=== PATIENT | male | born 1955 | race Caucasian/White ===

== ENCOUNTER → 2017-11-29 | Outpatient (CLI) | payer OTHER ==
[~2017-11-29] MED LIST: ADVAIR HFA 230M12 GM INH; ALDACTONE25 MG PO; ASPIR 8181 M1 PO; LEXAPRO 10 MG T10 M2 PO; LIPITOR80 MG PO; LOPRESSOR50 PO; MOBIC15 MG PO; NITROGLYCERIN0.4 MG SUBLING; ONDANSETRON HCL4 M2 PO; PREVACID15 MG PO; SINGULAIR 10 MG10 M1 PO; VENTOLIN HFA 1818 GM INH; ZETIA10 MG PO
== END ==
LOC: M.RAD 14:28
DX: S32.030G Wedge compression fracture of third lumbar vertebra, subsequent encounter for fracture with delayed healing (principal); I11.0 Hypertensive heart disease with heart failure; I50.22 Chronic systolic (congestive) heart failure; M19.90 Unspecified osteoarthritis, unspecified site; J44.9 Chronic obstructive pulmonary disease, unspecified; X58.XXXD Exposure to other specified factors, subsequent encounter

== ENCOUNTER → 2017-12-07 | Outpatient (CLI) | payer OTHER | LOC: M.MRI 11:20 | DX: S32.030D Wedge compression fracture of third lumbar vertebra, subsequent encounter for fracture with routine healing (principal); M47.816 Spondylosis without myelopathy or radiculopathy, lumbar region; M51.26 Other intervertebral disc displacement, lumbar region; M48.062 Spinal stenosis, lumbar region with neurogenic claudication; I10 Essential (primary) hypertension; I25.10 Atherosclerotic heart disease of native coronary artery without angina pectoris; E78.2 Mixed hyperlipidemia; J44.9 Chronic obstructive pulmonary disease, unspecified; K21.9 Gastro-esophageal reflux disease without esophagitis; M19.90 Unspecified osteoarthritis, unspecified site; X58.XXXD Exposure to other specified factors, subsequent encounter ==

== ENCOUNTER 2018-12-06 13:19 | Emergency (ER) | payer OTHER ==
[~2018-12-06] VITALS: Ht 182.9 cm; Wt 97.5 kg
[2018-12-06] MEDS ORDERED: NEURONTIN 300300 M1 PO (13:55)
[2018-12-06] MEDS ORDERED: ZOLOFT100 MG PO (13:56)
[2018-12-06] MEDS ORDERED: ANTIVERT25 MG PO (13:57)
[2018-12-06] MEDS ORDERED: TRAMADOL 50 MG50 MG PO (13:58)
[2018-12-06] MEDS ORDERED: ZANAFLEX4 MG PO ×2 (13:58→16:14)
[2018-12-06] MEDS ORDERED: VIAGRA100 MG PO (13:58)
[2018-12-06] MEDS ORDERED: MEDROLDOSEPACK PO (16:14)
[2018-12-06] MEDS ORDERED: PERCOCET PO (16:14)
[2018-12-06] MEDS ORDERED: NABUMETONE 750750 M1 PO (16:14)
[2018-12-06 16:22] VITALS: BP 155/95
== END 2018-12-06 16:23 | disposition home or self-care (01) ==
LOC: M.ERS 13:19
DX: S22.070A Wedge compression fracture of T9-T10 vertebra, initial encounter for closed fracture (principal); M54.31 Sciatica, right side; M19.90 Unspecified osteoarthritis, unspecified site; I10 Essential (primary) hypertension; E78.5 Hyperlipidemia, unspecified; Z88.5 Allergy status to narcotic agent; Z88.8 Allergy status to other drugs, medicaments and biological substances; W18.39XA Other fall on same level, initial encounter; Y93.89 Activity, other specified; Y92.89 Other specified places as the place of occurrence of the external cause; Y99.8 Other external cause status

== ENCOUNTER → 2018-12-13 | Outpatient (CLI) | payer OTHER ==
[~2018-12-13] MED LIST changes: +ANTIVERT25 MG PO; +FLEXERIL PO; +MEDROLDOSEPACK PO; +NABUMETONE 750750 M1 PO; +NEURONTIN 300300 M1 PO; +PERCOCET 5-3251 EACH PO; +PERCOCET PO; +TRAMADOL 50 MG50 MG PO; +VIAGRA100 MG PO; +ZANAFLEX4 MG PO; +ZOLOFT100 MG PO
== END ==
LOC: M.CT 11:22 → M.MRI 14:13 → M.CT 15:30
DX: S32.401A Unspecified fracture of right acetabulum, initial encounter for closed fracture (principal); M87.851 Other osteonecrosis, right femur; M47.817 Spondylosis without myelopathy or radiculopathy, lumbosacral region; I25.10 Atherosclerotic heart disease of native coronary artery without angina pectoris; J43.9 Emphysema, unspecified; I10 Essential (primary) hypertension; Z88.8 Allergy status to other drugs, medicaments and biological substances; Z79.899 Other long term (current) drug therapy; W19.XXXA Unspecified fall, initial encounter; Y93.89 Activity, other specified; Y92.89 Other specified places as the place of occurrence of the external cause; Y99.8 Other external cause status

== ENCOUNTER 2018-12-14 10:18 | Emergency (ER) | payer OTHER ==
[~2018-12-14] VITALS: Ht 182.9 cm; Wt 97.5 kg
[~2018-12-14 10:18] MED LIST changes: -FLEXERIL PO; -PERCOCET 5-3251 EACH PO
[2018-12-14] MEDS ORDERED: FLEXERIL PO (11:10)
[2018-12-14] MEDS ORDERED: PERCOCET 5-3251 EACH PO (11:10)
[2018-12-14 11:35] VITALS: BP 128/86
== END 2018-12-14 11:36 | disposition home or self-care (01) ==
LOC: M.ERS 10:18
DX: S72.091A Other fracture of head and neck of right femur, initial encounter for closed fracture (principal); M19.90 Unspecified osteoarthritis, unspecified site; I10 Essential (primary) hypertension; E78.5 Hyperlipidemia, unspecified; Z88.5 Allergy status to narcotic agent; Z88.8 Allergy status to other drugs, medicaments and biological substances; W18.39XA Other fall on same level, initial encounter; Y93.89 Activity, other specified; Y92.89 Other specified places as the place of occurrence of the external cause; Y99.8 Other external cause status

== ENCOUNTER → 2019-02-03 | Outpatient (CLI) | payer OTHER ==
[~2019-02-03] MED LIST changes: +FLEXERIL PO; +PERCOCET 5-3251 EACH PO; +TYLENOL325 MG PO
== END ==
LOC: M.PC 02:29
DX: M47.814 Spondylosis without myelopathy or radiculopathy, thoracic region (principal); M47.816 Spondylosis without myelopathy or radiculopathy, lumbar region; M51.34 Other intervertebral disc degeneration, thoracic region; M48.56XA Collapsed vertebra, not elsewhere classified, lumbar region, initial encounter for fracture; M48.54XA Collapsed vertebra, not elsewhere classified, thoracic region, initial encounter for fracture

== ENCOUNTER → 2019-02-05 | Outpatient (CLI) | payer OTHER | END | disposition home or self-care (01) | LOC: M.PC 03:23 | DX: M54.9 Dorsalgia, unspecified (principal); M47.814 Spondylosis without myelopathy or radiculopathy, thoracic region; M51.34 Other intervertebral disc degeneration, thoracic region; G89.29 Other chronic pain; I10 Essential (primary) hypertension; M19.90 Unspecified osteoarthritis, unspecified site; F17.210 Nicotine dependence, cigarettes, uncomplicated; E78.5 Hyperlipidemia, unspecified; Z98.890 Other specified postprocedural states; Z79.899 Other long term (current) drug therapy; Z88.8 Allergy status to other drugs, medicaments and biological substances ==

== ENCOUNTER → 2019-02-12 | Outpatient (CLI) | payer OTHER | LOC: M.PC 05:16 | DX: M51.34 Other intervertebral disc degeneration, thoracic region (principal); M47.814 Spondylosis without myelopathy or radiculopathy, thoracic region; M43.8X6 Other specified deforming dorsopathies, lumbar region; I10 Essential (primary) hypertension; F17.210 Nicotine dependence, cigarettes, uncomplicated; Z79.899 Other long term (current) drug therapy; Z72.89 Other problems related to lifestyle; Z88.1 Allergy status to other antibiotic agents; Z88.5 Allergy status to narcotic agent ==

== ENCOUNTER 2019-05-20 15:33 | Inpatient (IN) | payer OTHER ==
[~2019-05-20] VITALS: Ht 182.9 cm; Wt 113.9 kg
[~2019-05-20 15:33] MED LIST changes: +ADVAIR 250-501 EACH INH; -ADVAIR HFA 230M12 GM INH; -ALDACTONE25 MG PO; +SPIRONOLACTONE25 M1 PO
[2019-05-20 15:36] VITALS: BP 139/97
[2019-05-20 17:07] LABS: ABSOLUTE BASOPHILS 0.1 thou/uL (0.0-0.2); ABSOLUTE EOSINOPHILS 0.2 thou/uL (0.0-0.7); ABSOLUTE LYMPHOCYTES 1.7 thou/uL (0.8-5.3); ABSOLUTE MONOCYTES 0.5 thou/uL (0.0-1.2); ABSOLUTE NEUTROPHILS 2.6 thou/uL (1.6-8.1); BASOPHILS 1.2 %; EOSINOPHILS 3.8 %; HEMATOCRIT 42.9 % (42.0-52.0); HEMOGLOBIN 14.8 gm/dL (14.0-18.0); LYMPHOCYTES 33.3 %; MCH 33.5 pg (26.0-34.0); MCHC 34.5 g/dL (28.0-37.0); MCV 97.1 fL (80.0-100.0); MPV 7.1 fl. (7.2-11.1); NUCLEATED RBCS 0 /100WBC; PLATELET COUNT* 287 thou/uL (150-400); POLYS 51.7 %; RBC 4.42 mil/uL (4.50-6.00); RDW-CV 14.4 % (10.5-14.5)
[2019-05-20 17:16] LABS: CALCIUM 8.8 mg/dL (8.5-10.1); CREATININE 1.2 mg/dL (0.6-1.3); POTASSIUM 3.7 mmol/L (3.5-5.1)
[2019-05-20 17:19] LABS: APTT 29.9 Seconds (25.0-31.3); PROTIME 10.2 Seconds (9.20-11.50)
[2019-05-20 17:20] LABS: ALBUMIN 3.1 g/dL (3.4-5.0); TOTAL BILIRUBIN 0.3 mg/dL (<0.1-1.0); TOTAL PROTEIN 7.6 g/dL (6.4-8.2)
[2019-05-20 21:30] VITALS: BP 136/89
[2019-05-20 21:42] VITALS: BP 142/93
--- NOTE | 2019-05-21 04:34 | NUR ---
PATIENT RECEIVED MORPHINE Q3 FOR HIP PAIN. CARRERO HAS GOOD OUTPUT. HE DID NOT WANT TO BE MOVED AFTER WE TRANSFERRED HIM TO HIS BED. NPO SINCE MIDNIGHT AND CONSENT FOR SURGERY SIGNED AND IN CHART. CONSULT WITH SURGERY FOR SUNDAY/ WILL CONTINUE TO FOLLOW PLAN OF CARE.
[2019-05-21 04:39] LABS: HEMATOCRIT 43.2 % (42.0-52.0); MCH 34.1 pg (26.0-34.0); MCHC 34.8 g/dL (28.0-37.0); MPV 7.4 fl. (7.2-11.1); RBC 4.41 mil/uL (4.50-6.00); RDW-CV 14.6 % (10.5-14.5); WBC 7.6 thou/uL (4.0-11.0)
[2019-05-21 05:01] LABS: CALCIUM 8.3 mg/dL (8.5-10.1); CREATININE 1.3 mg/dL (0.6-1.3); MAGNESIUM 1.7 mg/dL (1.8-2.4); POTASSIUM 4.5 mmol/L (3.5-5.1)
[2019-05-21 08:20] VITALS: BP 94/69
--- NOTE | 2019-05-21 08:24 | NUR ---
PT 71% ON ROOM AIR. O2 PLACED ON 3L NC AND SATTING AT 85%. TITRATED TO 4L NC AND SATTING AT 90%. PT PLACED ON 5L NC AND SATTING AT 94%. RT IN PT'S ROOM AND GIVING BREATHING TREATMENT. PT ALERT TO PERSON AND PLACE. WHEN ASKED YEAR PT STATES "I DON'T KNOW"
--- NOTE | 2019-05-21 10:23 | NUR ---
cm completed initial assessment to discuss d/c planning. pt asleep. pt at bedside, spouse stated pt is semi-active, hasnt been driving as of late. pt has shower bench, w/c and walker. pt is idependent w/adls. pt is current w/[facility], has been w[facility] 2 weeks. pt has hx w/SMV and pt's would like to explore SNF option; oppose to outpatient therapy. Vane notified and will send referral. cm to remain avail.
[2019-05-21 15:26] LABS: BE -4.7 mmol/L (-2 to +3); PO2 93.7 mmHg (75.0-100.0)
[2019-05-21 15:29] LABS: PCO2 51.4 mmHg (35.0-45.0); pH 7.265 (7.340-7.450)
--- NOTE | 2019-05-21 15:37 | NUR ---
Picked patient up for OR. Speech was garbled, said he was in the hallway. knew his name. Did not know date/time/why he is in hospital. Floor nurse said his oxygen demand had gone up and was on 5L/NC when we picked him up. Dr. Meyer ordered a STAT ABG which just came back. Dr. Meyer ordered a STAT MRI. Neurologist here and ordered an MRI. MRI check list completed and patient moved to MRI cart and went to MRI.
[2019-05-21 23:57] LABS: BE -4.1 mmol/L (-2 to +3); PO2 90.9 mmHg (75.0-100.0)
[2019-05-22] VITALS: BP 144/50
[2019-05-22] LABS: PCO2 71.5 mmHg (35.0-45.0); pH 7.177 (7.340-7.450)
[2019-05-22 01:27] LABS: BE -2.3 mmol/L (-2 to +3); PCO2 40.9 mmHg (35.0-45.0); PO2 76.1 mmHg (75.0-100.0); pH 7.366 (7.340-7.450)
[2019-05-22 04:00] VITALS: BP 100/72
[2019-05-22 04:27] LABS: HEMOGLOBIN 12.3 gm/dL (14.0-18.0)
[2019-05-22 08:00] VITALS: BP 140/50
--- NOTE | 2019-05-22 11:06 | EKG ---
[place] [address] ELECTROCARDIOGRAM REPORT Name: EULALIO SYED Room: [address] ADM IN .R.#: [id number] Admission: 05/20/19 Attend Phys: Janny Shaefr, Discharge: Date of : 53 Date of Service: 05/20/19 1701 Report #: [id number] THIS REPORT FOR: //name// [facility] ED Test Date: 2019-05-20 Test Time: 17:01:21 Pat Name: EULALIO SYED Department: Room: [facility] Gender: M Production Recovery Operator: TRACIE : 1955 Requested By: Rocio Berrios Order Number: [id number] MD: Maximo Brunson Measurements Intervals [place] Rate: 93 P: 58 CA: 184 QRS: 17 QRSD: 77 T: 23 QT: 372 QTc: 463 Interpretive Statements Sinus rhythm Abnormal R-wave progression, early transition Compared to ECG 01/02/2017 09:24:25 Sinus tachycardia no longer present Atrial premature complex(es) no longer present Electronically Signed On 05-22-2019 11:05:17 PATTERN VAULT CLERK by Maximo Brunson [email or web address] <ELECTRONICALLY SIGNED> By: Maximo Brunson MD, FACC 05/22/19 1105 170 170 Maximo Brunson MD, FACC /EPI
[2019-05-22 12:23] VITALS: BP 112/74
--- NOTE | 2019-05-22 14:29 | NUR ---
WOUND NURSE: PATIENT HAS PREVENA NPWT OVER POSTOPERATIVE INCISION ON THE RIGHT HIP AND THE DISPOSABLE CANNISTER IS FULL. SPOKE WITH YONAS IN O.R. AND ASKED IF REPLACEMENT CANNISTER IS AVAILABLE AND HE SAID NOT WITHOUT OPENING AN NEW PREVENA NO INDIVIDUAL CANNISTERS AVAILABLE SPOKE WITH RAZIA AT PENDING SALE TO [facility] PERTAINING TO THIS AND SHE REPORTS VAC ULTA HAS PREVENA SETTING AT [employer] NEG PRESSUE AND OK TO USE IN ACUTE CARE SETTING. PATIENT WAS SUBSEQUENTLY CONVERTED OVER TO VAC ULTA WITH PREVENA SETTING. THIS WAS TOLERATED WELL BY THE PATIENT. SERIAL/BARCODE# [id number] FOR NPWT USED.
[2019-05-22 16:11] VITALS: BP 106/70
--- NOTE | 2019-05-22 19:37 | NUR ---
RECEIVED REPORT FROM RODGER GREEN. ASSUMED CARE OF PT AROUND 0730. PT A&O X4. CASING SEWER IN PLACE TRACING SR WITH OCCASIONAL FIRST DEGREE. AM ASSESSMENT AND VITALS COMPLETED CHARTED. AT BEDSIDE MOST OF SHIFT. PT TOLERATING DIET. PT REPORTING RIGHT HIP PAIN, PO AND IV PAIN MEDICATION GIVEN WITH LIMITED RELIEF; PT STATES "I'M OKAY LONG I DON'T MOVE". PT UP TO CHAIR WITH P.T. THIS SHIFT. COLIN PLUS 125 WOUND VAC FULL AROUND 1330. HOSPITAL OUT OF REPLACEMENT CANNISTERS/COMPLETE 35CM KITS, SO PATIENT PLACED ON HOSPITAL WOUND VAC UNDER COLIN SETTING. SUCTION EFFECTIVE AND WORKING. DRAIN WITH 100CC SANGUNIOUS DRAINAGE AT THIS TIME. INCISIONAL VAC SPONGE DRESSING SATURATED - DR VALENCIA VAUGHN AWARE AND DECISION MADE TO NOT CHANGE DRESSING AT THIS TIME. NUMBER TO REACH COLIN WOUND VAC REP IS [phone]. REPLACEMENT CANNISTER TO ARRIVE SUNDAY SHOULD PT NEED TO GO HOME WITH COLIN WOUND VAC. PT REFUSING TO WEAR/USE ABDUCTOR WEDGE BUT STATES HE WILL NOT CROSS HIS LEGS. PT CURRENTLY RESTING IN BED. CALL LIGHT IS WITHIN REACH. HOURLY ROUNDING PERFORMED. FALL PRECAUTIONS IN PLACE.
[2019-05-22 20:00] VITALS: BP 114/69
[2019-05-23] VITALS: BP 126/75
[2019-05-23 04:00] VITALS: BP 111/61
[2019-05-23 05:01] LABS: HEMATOCRIT 31.7 % (42.0-52.0); HEMOGLOBIN 11.1 gm/dL (14.0-18.0)
[2019-05-23 05:20] LABS: ALBUMIN 2.4 g/dL (3.4-5.0); CALCIUM 8.1 mg/dL (8.5-10.1); CREATININE 1.4 mg/dL (0.6-1.3); MAGNESIUM 1.8 mg/dL (1.8-2.4); TOTAL BILIRUBIN 0.3 mg/dL (<0.1-1.0); TOTAL PROTEIN 6.6 g/dL (6.4-8.2)
[2019-05-23 06:09] LABS: BE -2.1 mmol/L (-2 to +3); PCO2 35.8 mmHg (35.0-45.0); PO2 65.2 mmHg (75.0-100.0)
[2019-05-23 08:00] VITALS: BP 109/71
--- NOTE | 2019-05-23 09:26 | NUR ---
I have reviewed the documentation by KINGS GARDNER from 05/22/19 to 05/22/19 and I concur with it. MARCIN CARMICHAEL
--- NOTE | 2019-05-23 10:18 | NUR ---
SPOKE TO PT AND ABOUT DC PLAN. WOULD LIKE A REHAB CONSULT FOR PT AND [facility] SECOND CHOICE. WILL DISCUSS WITH DR SHAHID
[2019-05-23 11:40] LABS: CALCIUM 8.2 mg/dL (8.5-10.1); CREATININE 1.2 mg/dL (0.6-1.3); MAGNESIUM 1.9 mg/dL (1.8-2.4); POTASSIUM 4.3 mmol/L (3.5-5.1)
[2019-05-23 11:43] VITALS: BP 104/72
--- NOTE | 2019-05-23 14:28 | NUR ---
AWAITING REHAB CONSULT. WILL FAX REFERRAL TO [facility] IF PT LEAVES THIS WEEKEND AND REHAB HAS NOT SEEN PT YET
--- NOTE | 2019-05-23 14:54 | NUR ---
I have reviewed the documentation by KINGS GARDNER from 05/23/19 to 05/23/19 and I concur with it. MARCIN CARMICHAEL
[2019-05-23 16:01] VITALS: BP 127/73
[2019-05-23 20:00] VITALS: BP 104/69
--- NOTE | 2019-05-23 20:15 | NUR ---
RECEIVED REPORT FROM RODGER GREEN. ASSUMED CARE OF PT AROUND 0730. PT ABLE TO ANSWER ORIENTATION QUESTIONS CORRECTLY THIS AM, BUT WAS STILL CONFUSED AND FORGETFUL, ESPECIALLY THIS AFTERNOON. PAIN MEDICATION GIVEN SPARINGLY FOR RIGHT HIP PAIN DUE TO CONFUSION. PT ABLE TO TOLERATE DIET THIS AM AND THIS EVENING, BUT SLEPT THROUGH LUNCH. VISITED THIS AFTERNOON. PT WORKED WITH P.T. AND O.T. THIS SHIFT. IV INTACT. MEDS PER EMAR. MAGAN IN PLACE TO D/D. NO BM THIS SHIFT. PT REFUSING Q2HRS TURNS AT TIMES, PREFERING TO REMAIN ON HIS BACK DUE TO RIGHT HIP DISCOMFORT. HIGH FALL RISK PRECAUTIONS IN PLACE. CALL LIGHT WITHIN REACH. HOURLY ROUNDING PERFORMED.
[2019-05-24] VITALS (7 sets, daily range): BP systolic 88–120; BP diastolic 59–77
--- NOTE | 2019-05-24 07:52 | NUR ---
0200 Pt reporting severe 10/10 pain to R hip. 4 mg morphine IVP given. 0230 Pt reporting increased SOA and chest pain. V/S unremarkable. 12-lead EKG obtained and charted. Pt becoming increasingly agitated and combative; likely due to medication induced delirium. Dr. Burrell notified of pt condition. [address] Burrell 0.5 mg ativan IVP administered and stat CXR ordered. 0330 CXR results negative. Pt resting comfortably with significant relief of agitation.
--- NOTE | 2019-05-24 15:59 | NUR ---
PT NOT PROGRESSING TOWARDS GOALS THIS SHIFT. PT VERY CONFUSED THIS SHIFT. APPEARS TO HAVE OCCASIONAL HALLUCINATIONS. PT GIVEN IV ATIVAN FOR AGITATION ON PREVIOUS SHIFT. CONFUSION MOST LIKELY RELATED TO MEDICATION. NO NARCOTICS GIVEN FOR PAIN MANAGEMENT THIS SHIFT. PT STARTED ON TRAMADOL FOR PAIN. NO OTHER CONCERNS AT THIS TIME. CLWR. WCTM.
[2019-05-25] VITALS: BP 118/72
[2019-05-25 03:57] VITALS: BP 111/72
[2019-05-25 04:46] LABS: HEMATOCRIT 30.3 % (42.0-52.0); HEMOGLOBIN 10.7 gm/dL (14.0-18.0); MCH 34.7 pg (26.0-34.0); MCHC 35.4 g/dL (28.0-37.0); MCV 98.1 fL (80.0-100.0); MPV 8.1 fl. (7.2-11.1); RBC 3.09 mil/uL (4.50-6.00); RDW-CV 14.2 % (10.5-14.5); WBC 10.4 thou/uL (4.0-11.0)
[2019-05-25 04:58] LABS: CALCIUM 8.9 mg/dL (8.5-10.1); CREATININE 1.1 mg/dL (0.6-1.3); POTASSIUM 3.9 mmol/L (3.5-5.1)
--- NOTE | 2019-05-25 05:44 | NUR ---
Pt remains confused & impulsive, but redirectable. Pt has had sitter with him overnight due to impulsivity and frequent attempts to remove wnd vac drsg, pull at tanner, or pick at IV. Pt experiencing hallucinations. Dose of diazepam given at bedtime. Pt later received dose of tramadol and cyclobenzaprine. Pt appeared restful and calm, even sleeping intermittently between MN and 0330; but has been more restless since 0430. Has requested to have mother called because he states she is supposed to be picking him up. Pt denies that he is at hospital, though he states that he has had hip replacement surgery, and has fallen twice since then. Pt has had at least 3 episodes this morning where he states he can't catch his breath; describing that "there is a catch, and then it lets up." Pt has had hiccups intermittently since 2 or 3 this am. Was on room air most of night, but placed on 2L per NC for comfort. Pt in Afib per monitor, HR 100s-110s. VSS. Will continue to monitor.
[2019-05-25 09:00] VITALS: BP 107/61
--- NOTE | 2019-05-25 10:00 | NUR ---
ASSUMED CARE AFTER REPORT APPROX 0730. SITTER AT BEDSIDE, PATIENT RESTLESS. ORIENTED TO SELF AND SITUATION. INAPPROPRIATE BEHAVIOR INCLUDING YELLING, THROWING ITEMS, PULLING STAT LOCK OFF, USING FOUL LANGUAGE. THERAPEUTIC COMMUNICATION TECHNIQUES: PRESENCE, REDIRECTING, SETTING BOUNDARIES. ASSESSMENT COMPLETE, DOCUMENTED. VS OBTAINED, DOCUMENTED. GOAL: COOPERATE WITH PLAN OF CARE, PAIN MANAGEMENT. HOURLY ROUNDING FOR SAFETY/PT NEEDS.
[2019-05-25 12:00] VITALS: BP 108/76
[2019-05-25 15:58] VITALS: BP 115/75
[2019-05-25 19:45] VITALS: BP 106/71
[2019-05-26 00:42] VITALS: BP 139/80
[2019-05-26 04:01] VITALS: BP 126/79
--- NOTE | 2019-05-26 05:09 | NUR ---
PT SLEPT MOST OF SHIFT. ASSESSMENT DOCUMENTED. MEDS GIVEN PER E-MAY. IV PATENT. PAIN MEDS GIVEN PER E-MAY. PT REFUSED MEDICATIONS PART OF SHIFT. PT HALLUCINATING PART OF SHIFT. WOUND VAC IN PLACE. SITTER REMAINED AT BEDSIDE. WILL CONTINUE WITH PLAN OF CARE.
[2019-05-26 08:00] VITALS: BP 102/65
--- NOTE | 2019-05-26 10:08 | NUR ---
Cristhianter to be pulled today. Acute rehab consult pending, CM requested that therapies see Pt and rehab Dr liu for rehab. If Pt does not qualify for acute rehab, plan will be for skilled at [facility], CM to fax referral to [facility] once rehab decision made. Following.
[2019-05-26 13:05] VITALS: BP 111/62
--- NOTE | 2019-05-26 15:22 | EKG ---
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: MICK : 1955 Requested By: Janny Shafer Order Number: [id number] MD: Abdiel Henley Measurements Intervals [place] Rate: 129 P: AK: QRS: 5 QRSD: 70 T: 44 QT: 299 QTc: 438 Interpretive Statements Atrial fibrillation Abnormal R-wave progression, early transition Minimal ST depression, lateral leads Compared to ECG 05/20/2019 17:01:21 ST (T wave) deviation now present Sinus rhythm no longer present Electronically Signed On 05-26-2019 15:21:11 CAN SLIDER by Abdiel Henley [email or web address] <ELECTRONICALLY SIGNED> By: Abdiel Henley MD, [facility] 05/26/19 1521 0347 0347 Abdiel Henley MD, [facility] /EPI
[2019-05-26 16:00] VITALS: BP 133/75
--- NOTE | 2019-05-26 20:03 | NUR ---
PT ORIENTED TO SELF ONLY ALERT, CONFUSION 1 TO 1 CONSTANT OBSERVATION, WOUND VAC ON REPAIRED HIP FRACTURE, UP WITH ONE AND WALKER- PIVOTS TO CHAIR AND COMMODE, HOURLY ROUNDING PERFORMED, POSSESSIONS AND CALL LIGHT WITHIN REACH
[2019-05-26 20:30] VITALS: BP 97/66
[2019-05-27] VITALS: BP 115/57
[2019-05-27 04:45] VITALS: BP 114/72
[2019-05-27 05:17] LABS: HEMATOCRIT 31.7 % (42.0-52.0); MCH 33.6 pg (26.0-34.0); MCHC 34.6 g/dL (28.0-37.0); MCV 97.1 fL (80.0-100.0); RBC 3.27 mil/uL (4.50-6.00); RDW-CV 14.7 % (10.5-14.5); WBC 7.3 thou/uL (4.0-11.0)
[2019-05-27 05:35] LABS: CALCIUM 8.8 mg/dL (8.5-10.1); CREATININE 1.1 mg/dL (0.6-1.3); MAGNESIUM 1.9 mg/dL (1.8-2.4)
--- NOTE | 2019-05-27 08:03 | NUR ---
PT SLEPT MOST OF SHIFT. ASSESSMENT DOCUMENTED. MEDS GIVEN PER E-MAY. IV PATENT. PAIN MEDS GIVEN PER E-MAY. SITTER REMAINED AT BEDSIDE. WOUND VAC IN PLACE. INCISION SITE RED AND INFLAMMED WHEN ROUNDING THIS AM. WILL CONTINUE WITH PLAN OF CARE.
--- NOTE | 2019-05-27 08:09 | NUR ---
CM was informed that acute rehab initiated insurance auth yesterday, plan dc to acute rehab once auth received. Following.
[2019-05-27 11:54] VITALS: BP 109/69
--- NOTE | 2019-05-27 16:06 | NUR ---
SUREKHA called pt Izaiah to discuss pending inpt rehab and pending insurance auth but no answer so left a detailed message about dc planning. Dr Shafer mentioned discussing with pt dtr as well but no dtr name/number listed in chart or notes or cm worksheet so SUREKHA expressed in the message to discuss with pt dtr as well. Back up plan if insurance does not provide auth for inpt rehab would be to try [facility].
--- NOTE | 2019-05-27 17:43 | NUR ---
PT IS A/O X3,BP SOFT-METOPROLOL HELD.REPRODUCTION PRODUCTION MANAGER IN PLACE.PT PROGRESSING TOWARDS GOALS.PT WORKED WITH PT/OT/ST.PT SAT UP IN CHAIR SEVERAL TIMES THROUGHOUT THE SHIFT.WOUND VAC SECURE AND PATENT.CARRERO SECURE ANDPATENT.POTASSIUM REPLACED.IV ANTIBIOTICS GIVEN.PAIN MANAGED WELL WITH PO MEDICATIONS.HOURLY ROUNDING COMPLETED FOR PT SAFETY.CALL LIGHT AND FALL PRECAUTIONS IN PLACE.WILL CONTINUE TO MONITOR FOR DURATION OF SHIFT.
[2019-05-27 20:00] VITALS: BP 110/72
[2019-05-28 00:43] VITALS: BP 113/71
--- NOTE | 2019-05-28 04:13 | NUR ---
[facility] PATIENT CARE [id number]. PATIENT ALERT AND ORIENTED TIMES FOUR. MINOR COMPLAINTS OF PAIN NOTED. MEDICATIONS GIVEN PER EMAR. WOUND VAC IN PLACE. COLD PACK IN PLACE ON RIGHT HIP AREA. ABLE TO TRANSFER TO BSC WITH MIN ASSISST. USES CALL LIGHT APPROPRIATELY. BOX TOE BUFFER AND HOURLY ROUNDING COMPLETED CHARTED.
[2019-05-28 04:30] VITALS: BP 116/82
[2019-05-28 12:11] VITALS: BP 118/82
--- NOTE | 2019-05-28 12:20 | NUR ---
SPOKE TO IRMA AND INFORMED HER THAT PT WAS DENIED FOR ACUTE REHAB. SHE REQUESTS THAT A REFERRAL BE SENT TO [facility]. REFERRAL PACKET FAXED
[2019-05-28 18:09] VITALS: BP 118/76
--- NOTE | 2019-05-28 20:39 | NUR ---
PT 7 DAYS POST SURGERY. WOUND VAC REMOVED PER ORDER FROM ORTHO. THIS RN AND RIP SAW OPERATOR REMOVED DRESSING AND APPLIED NEW ONE. INCISION WELL APPROXIMATED AND GALDINO INTACT.
[2019-05-28 20:40] VITALS: BP 114/72
--- NOTE | 2019-05-28 22:07 | OP ---
[address] [place] [address] OPERATIVE REPORT Name: EULALIO SYED Room: [address] IN M.R.#: [id number] Admission: 05/20/19 Attend Phys: Janny Shafer MD Discharge: Date of : 53 Report #: [id number] THIS REPORT FOR: //name// cc: Paige Galindo Linda J. DO ~ THIS REPORT FOR: //name// CC: Abdiel Galindo PREOPERATIVE DIAGNOSIS: Right comminuted periprosthetic proximal femur fracture with loose stem. POSTOPERATIVE DIAGNOSIS: Right comminuted periprosthetic proximal femur fracture with loose stem. PROCEDURE: 1. Open reduction and internal fixation, right periprosthetic proximal femur fracture, comminuted. 2. Revision total hip arthroplasty. 3. Open reduction and internal fixation, right greater trochanter. SURGEON: Mervin Candelario DO ASSISTANTS: 1. Yovani Merrill DO 2. César Vieira DO 3. Parker Haas DO 4. Yovani Ramos DO ANESTHESIA: General. ANTIBIOTICS: Ancef IV. FLUIDS: 1500 mL lactated Ringer's. BLOOD LOSS: 550 mL. COMPLICATIONS: None. SPECIMENS: None. DRAINS: None. CONDITION OF PATIENT: Stable to PACU. [address] [place] [address] OPERATIVE REPORT Name: EULALIO SYED Room: [address] IN [facility]#: [id number] Admission: 05/20/19 Attend Phys: Janny Shafer MD Discharge: Date of : 53 Report #: [id number] IMPLANTS: Biomet Faiza femoral stem size 16 x 190 mm, A-body 50 mm with standard offset, ceramic 40-mm head, +3 neck adapter, cables for fracture site x 2, 128-mm trochanteric side plate with 4 cables. INDICATIONS FOR PROCEDURE: The patient was admitted to with a periprosthetic proximal femur fracture with loose stem. Dr. Peterson who originally did his surgery contacted me directly asked me if I would take over care. We both agreed that surgical revision would be the treatment of choice. I went over with the patient and family, plan of surgery with indications and reasoning, and risks and complications. Please see consultation and progress notes for full details of discussions had. Risks and complications were acknowledged, accepted, and consent was obtained. DESCRIPTION OF PROCEDURE: I marked the right lower extremity in the presence of the operative team members. Everyone agreed this was correct. He was taken back to the operative suite where a briefing was performed indicating correct patient, procedure, site, antibiotics and that implants were present and sterile. All team members agreed. General anesthetic was administered, transferred over to the operative table in the left lateral decubitus position. The right lower extremity was sterilely prepped and draped in standard fashion. Timeout was performed indicating correct patient, procedure, site, antibiotics and that implants were present and sterile. All team members agreed. Marked out an incision for an anterolateral approach, made sure we kept appropriate distance for good skin bridge between his previous anterior incision, scalpel through skin, full thickness flaps down to the IT band and fascia. Fascia was incised proximally and distally. Charnley retractor placed deep. An anterolateral approach was utilized, took a cuff off of the greater trochanter, and left the cuff or tissue to repair, also worked down through our vastus and through Burns-Maharaj approach as we would need to gain access to our fracture site. Fracture site had a long spike. We were able to continue our incision distally working through our interval appropriately and full visualization of the fracture site. This did unfortunately have some significant comminution with a free fragment medially, posteriorly, and anteriorly. We were able to overall clean out the fracture site, dislocate the hip, removed the stem, cleaned out the fracture site, get appropriate reduction with cerclage cable. We passed the cable staying on bone and provisionally tightening down, but not overtightening. There was a loose trochanteric fragment as well. This would require separate fixation. We brought in flat plate images and confirmed that overall reduction was appropriate. We began prepping the femur with reamers for a 190 to bypass the fracture site by at least two cortical diameters. We went with a 190 mm 16 reamer. We took x-rays and it showed that would be appropriate position and size. The final 16 x 190 mm stem aspect of the Faiza was through and irrigated with normal saline, implanted this, had good fit and fill along the diaphysis. At that point in time, we then began reaming for an A-body, placed our A-body trial with a standard neck adapter and 40-head and locked our version in appropriate position and reduced the hip. Overall stable, but leg [address] [place] [address] OPERATIVE REPORT Name: EULALIO SYED Room: [address] IN M.R.#: [id number] Admission: 05/20/19 Attend Phys: Janny Shafer MD Discharge: Date of : 53 Report #: [id number] lengths were felt to be slightly short. We brought in the flat plate image and this showed continued overall reduction and appropriate sizing of our implants. We dislocated the hip, removed the trial body and head. Final-A 50-mm body was thrown on to the back table. This was implanted and set screw engaged and our version was appropriate judging off the back wall, the calcar, and our femoral condyles that the set screw fully engaged, we then began trialing our heads again. At this time, we went +3. We reduced the hip. This had excellent stability throughout all range of motion, could not find any instability and the leg lengths were more appropriate. Therefore, that was our final head size, thrown on to the backtable, ceramic. We dislocated the hip, removed the trial head, placed our final ceramic 40-mm head with +3 adapter. With all final components for the hip in place, we then reduced the hip, made sure that our distal cables were tightened and then crimped and cut, separate trochanteric fracture needed to be addressed. We, therefore, threw the trochanteric side plate, placed this into its appropriate position and passed the cables again appropriately staying on bone and tightening these down appropriately making sure that the cable was also one being above the lesser, but on bone and not on the prosthesis and one being below the lesser of our proximals. Once we tightened these down and provisionally held that, we brought in our x-ray. Overall, had excellent position of all implants and excellent fracture reduction. We therefore final tightened, crimped, and cut the excess cable. Final intraoperative films were saved and dismissed, irrigated thoroughly with normal saline, reapproximated our vastus fascia with 0 Vicryl [id number] interrupted. Wounds were sewn back to the trochanter with through bone sutures [id number] interrupted #5 TiCron and oversewn with #1 Vicryl. There was no capsule to repair, but he had had a capsulectomy from an anterior approach. We irrigated again with normal saline, closed our IT band layer with #1 Vicryl [id number] interrupted and oversewn with #1 Stratafix running. Subcutaneous and skin were irrigated and then closed with a deep 0 Vicryl layer, 2-0 Monocryl buried, deeper subcutaneous and then fazal for skin. Debriefing performed where we confirmed procedure, blood loss, and that all counts were correct and final. All team members agreed. Sterile incisional VAC dressing was applied. This was sealed and functioning appropriately. He was transferred off the operative table to his bed in supine position. Leg lengths were excellent. Placed an adductor pillow, extubated, and taken to PACU stable. POSTOPERATIVE COURSE AND EVALUATION: I spoke with his and addressed questions she had stated to her satisfaction. She was very thankful for my time and efforts. He was resting in PACU with vital signs stable, pain controlled, neurovascularly intact. Compartments are soft and compressible. Negative Homans sign. No pain out of proportion with passive stretching and incisional VAC dressing functioning appropriately. PACU films showed stable internal fixation and fracture reduction. Implants in good position and alignment. No dislocation or new fracture obviously seen. He will be limited weightbearing. We will also limit his abduction to protect his greater trochanteric repair. PT/OT, case management to help with discharge planning. Neurology is already on [address] [address] OPERATIVE REPORT Name: EULALIO SYED Room: M.223-P ADM IN M.R.#: [id number] Admission: 05/20/19 Attend Phys: Janny Shafer MD Discharge: Date of : 53 Report #: [id number] his case. We will use pain medications as possible. We will continue to monitor. I encouraged nursing, medical staff, the patient, and family to call anytime with questions or concerns. We will continue to monitor. <ELECTRONICALLY SIGNED> By: Mervin Candelario DO 05/28/192206 36 0003Jajeronimo Candelario DO /nt
[2019-05-29] VITALS (7 sets, daily range): BP systolic 105–131; BP diastolic 73–84
--- NOTE | 2019-05-29 02:33 | NUR ---
INITAL ASSESMENT COMPLETED AT 2039. PT RECIEVING SCHEDULED TRAMADOL FOR PAIN. PT UP TO BSC WITH WALKER AND ASSIST X2. CALL LIGHT IN REACH. PT USING PROPERLY.
--- NOTE | 2019-05-29 09:00 | NUR ---
ASSUMED CARE OF PT AT 0730. PT SITTING UP IN THE RECLINER WAITING FOR BREAKFAST. A&0X4, COMPLAINS OF PAIN TO RLE. SCHEDULED PAIN MEDICATION GIVEN BY NOC SHIFT. LIDOCAINE PATCH PLACED WELL. NON PHARMACOLOGICAL MEASURES USED WITH PARTIAL RELIEF. TRACING SR ON THE DROP MAN. ON RA SAT UPPER 90'S. DENIES ANY SHORTNESS OF BREATH. PT UP WITH 1-2 ASSIST AND WALKER TO BATHROOM. EDEMA NOTED TO RLE. DRESSING IN PLACE TO RLE WITH NO DRAINAGE NOTED. PT GOAL FOR TODAY IS WORK WITH PHYSICAL AND OCCUPATIONAL THERAPY, PAIN MGMT, UP TO CHAIR FOR MEALS AND DISCHARGE PLANNING TO SNF. AM ASSESSMENT CHARTED. MEDICATIONS PER MAY. PT REPOSITIONED EVERY 2 HOURS FOR COMFORT. HOURLY ROUNDING OBSERVED. BED IN LOW POSITION. BED ALARM IN PLACE. FALL PRECAUTIONS IN PLACE. CALL LIGHT WITHIN REACH. WILL CONTINUE PLAN OF CARE.
--- NOTE | 2019-05-29 11:44 | NUR ---
PT ACCEPTED TO [facility] PENDING INSURANCE AUTH. WILL CHECK BACK THIS AFTERNOON
--- NOTE | 2019-05-29 15:40 | NUR ---
INSURANCE AUTH STILL PENDING FOR PT TO GO TO [facility]. PT NOTIFIED
--- NOTE | 2019-05-29 17:15 | NUR ---
NO ACUTE CHANGES THROUGHOUT SHIFT. REFER TO CHARTING. PT PROGRESSING TOWARDS GOALS. PT WORKED WITH PHYSICAL AND OCCUPATIONAL THERAPY TODAY-TOLERATED WELL. UP TO CHAIR FOR ALL MEALS-TOLERATED WELL. PLAN IS FOR DISCHARGE TO [facility] TOMORROW 05/30 PENDING INSURANCE AUTHORIZATION. PT COMPLAINED OF PAIN TO RLE THROUGHOUT SHIFT-TREATED WITH SCHEDULED TRAMADOL AND TYLENOL WITH PARTIAL RELIEF. MED SURG STATUS. ON RA SAT UPPER 90'S. DENIES ANY SHORTNESS OF BREATH. PT UP WITH 1 ASSIST AND WALKER TO BATHROOM. MEDICATIONS PER MAY. PT REPOSITIONED EVERY 2 HOURS FOR COMFORT. HOURLY ROUNDING OBSERVED. BED IN LOW POSITION. BED ALARM IN PLACE. FALL PRECAUTIONS IN PLACE. CALL LIGHT WITHIN REACH. WILL CONTINUE PLAN OF CARE.
--- NOTE | 2019-05-30 05:13 | NUR ---
ASSUMED PATIENT CARE OF PATIENT AT 1900. ASSESSMENT COMPLETED CHARTED. PATIENT IS MED-SURG ON THE MONITOR. SMALL AREA OF DRAINAGE NOTED ON RIGHT HIP DRESSING. DRESSINGS ARE INTACT. HOURLY ROUNDING IN PLACE FOR PATIENT SAFETY. CLWR.
[2019-05-30 07:00] VITALS: BP 121/64
--- NOTE | 2019-05-30 08:45 | NUR ---
INITAL ASSESSMENT COMPLETED CHARTED. VSS, PT IS M/S STATUS. PT HAS MINIMAL PAIN TO L LE. PT DENIES SOA, N/V/D, SOA. REFER TO COMPUTER CHARTING FOR FURTHER DETAILS. HOURLY ROUNDING AND FALL PRECAUTIONS IN PLACE FOR PT SAFETY. CLWR.
[2019-05-30] MEDS ORDERED: LIDOPATCH1 EACH TOP (10:54)
[2019-05-30] MEDS ORDERED: COLACE100 MG PO (10:54)
[2019-05-30] MEDS ORDERED: ELIQUIS5 MG PO (10:54)
[2019-05-30] MEDS ORDERED: TRAMADOL 50 MG50 MG PO (10:54)
[2019-05-30] MEDS ORDERED: PAIN RELIEVER500 MG PO (10:54)
--- NOTE | 2019-05-30 14:59 | NUR ---
CONTINUE TO FOLLOW, STILL AWAITING INSURANCE AUTH FOR SNF AT [facility]. SPOKE WITH RENNY/SALO AND ALSO CALLED PT'S INSURANCE, LEFT MESSAGES WITH BOTH REVIEWER FOR ACUTE AND SNF. NO AUTH YET. PT AND UPDATED.
[2019-05-30 15:23] VITALS: BP 121/64
[2019-05-30 17:04] VITALS: BP 117/73
[2019-05-30 20:00] VITALS: BP 118/73
[2019-05-30 23:49] VITALS: BP 112/74
[2019-05-31] VITALS (7 sets, daily range): BP systolic 104–121; BP diastolic 64–74
--- NOTE | 2019-05-31 05:01 | NUR ---
PT CARE ASSUMED AT 1930. SAT MAINTAINED IN RA. ALERT AND ORIENTED X4. DENIES SOB. CALL LIGHT WITHIN REACH AND BED IN LOW POSITION. HOURLY ROUNDING DONE FOR PT SAFETY.
--- NOTE | 2019-05-31 14:28 | NUR ---
ASKED FOR ASSISTANCE FROM CAUSTIC LOADER IN GETTING IN TOUCH WITH ADMISSIONS AT [facility]. ATTEMPTED TO CALL LUCIO ON HER CELL . NO ANSWER TO CALLS OR TEXTS. CALLED AND SPOKE TO CHARGE NURSE WHO DOES NOT HAVE ANY OTHER CONTACT INFO FOR ADMISSIONS AND IS NOT AWARE OF ADMISSION TODAY. WILL ATTEMPT TO FOLLOWUP.
--- NOTE | 2019-05-31 16:32 | NUR ---
ASSUMED CARE OF PATIENT THIS AM AT 0730. PATIENT IS ALERT AND ORIENTED X 4. HE C/O PAIN AT 3 TODAY ON PAIN SCALE. PLANS TO DISCHARGE TO [facility] WERE PLANNED YESTERDAY AND PATIENT WAS TO TRANSFER WHEN BED BECAME AVAILABLE TODAY. ATTEMPTED TO CONTACT ADMISSION NURSE MOST OF THE DAY WITH NO SUCCESS. NURSING REGIONAL BUSINESS MANAGER WAS NOTIFIED. DISCOVERED THAT TRANSFER WOULD NOT BE DONE TODAY THIS EVENING. PATIENT WAS DISAPPOINTED. HE HAS BEEN UP IN THE RECLINER AND UP TO THE BATHROOM WITH WALKER AND HAS WORKED WITH PT AND OT. PAIN MANAGED WITH SCHEDULED PAIN MEDICATION. WILL CONTINUE TO MONITOR PATIENT COMFORT AND SAFETY. NO FALLS OR INJURY. PATIENT HAS RETURNED TO BED THIS EVENING.
--- NOTE | 2019-06-01 05:50 | NUR ---
PT CARE ASSUMED AT 1930. SAT MAINTAINED IN RA. ALERT AND ORIENTED X4. C/O PAIN, MEDICATION GIVEN PER EMAR. CALL LIGHT WITHIN REACH AND BED IN LOW POSITION. HOURLY ROUNDING DONE FOR PT SAFETY.
[2019-06-01 08:00] VITALS: BP 103/67
--- NOTE | 2019-06-01 13:20 | NUR ---
ASSUMED CARE OF PATIENT THIS AM AT 0730. PATIENT IS ALERT AND ORIENTED X 4. HE C/O CONTINUED RIGHT LEG AND FOOT PAIN TODAY. PATIENT'S RIGHT FOOT IS ODDLY ROTATED TO THE RIGHT. HE STATED THAT THIS WAS NEW SINCE HIS FALL. DR KOCH NOTIFIED AND FOOT X RAY ORDERED. HE WAS C/O DIZZINESS THIS AM AND ORTHOSTATICS AND A FLUID BOLUS ORDERED AND GIVEN. SEE FLOW SHEET FOR BLOOD PRESSURES. PATIENT STATED THAT HE WAS FEELING LESS DIZZY NOW. WILL CONTINUE TO MONITOR COMFORT. PATIENT ASSISTED WITH ADLS THROUGHOUT THE DAY. HE IS UP TO THE BATHROOM WITH THE WALKER AND 1 ASSIST. NO FALLS OR INJURY.
[2019-06-01 14:52] VITALS: BP 88/59
[2019-06-01 14:54] VITALS: BP 95/66; BP 97/59
[2019-06-01 17:00] VITALS: BP 103/71
[2019-06-01 20:20] VITALS: BP 113/76
[2019-06-02 00:46] VITALS: BP 104/67
--- NOTE | 2019-06-02 05:42 | NUR ---
PT CARE ASSUMED 1930. SAT MAINTAINED IN RA. ALERT AND ORIENTED X4. C/O PAIN, MEDICATION GIVEN PER EMAR. CALL LIGHT WITHIN REACH AND BED IN LOW POSITION. HOURLY ROUNDING DONE FOR PT SAFETY.
[2019-06-02 07:05] VITALS: BP 99/63
[2019-06-02] MEDS ORDERED: OXYCODONE HCL 55 MG PO (09:44)
[2019-06-02] MEDS ORDERED: VOLTAREN GEL 1100 G1 TOP (09:44)
--- NOTE | 2019-06-02 09:54 | NUR ---
INITAL ASSESSMENT COMPLETED CHARTED. VSS. PT IS M/S STATUS. PT EXPRESSES THE DESIRE TO TRANSFER TO SNF. DISCHARGE SET UP FOR TODAY. NO NEW COMNCERNS. HOURLY ROUNDING AND FALL PRECAUTIONS IN PLACE FOR PT SAFETY.
--- NOTE | 2019-06-02 10:18 | NUR ---
irving mcclellan/gerardo @ [facility]. she will set up transportation for 1300 today, as they have bed avail. pt , janeth, notified. she stated she will be over to [facility] after she gets off work. nurse notified and agreeable to plan. irving provided nurse number to call report. [phone].
== END 2019-06-02 13:18 | DRG 466 ==
LOC: M.ERS 15:33 → M.2W 16:59 → M.TBA-ER 16:59 → M.ORTHSURG 16:59 → M.2W 05-21 22:53
PROVIDERS: Anesthesiology; Internal Medicine; Orthopaedic Surgery; Personal Emergency Response Attendant; ADMIT Internal Medicine
PROC: 0QS604Z Reposition Right Upper Femur with Internal Fixation Device, Open Approach (ICD-10-PCS; principal; 2019-05-28)
PROC: 0SW90JZ Revision of Synthetic Substitute in Right Hip Joint, Open Approach (ICD-10-PCS; principal; 2019-05-28)
DX: M97.01XA Periprosthetic fracture around internal prosthetic right hip joint, initial encounter (principal); G92 Toxic encephalopathy; J96.01 Acute respiratory failure with hypoxia; S22.32XA Fracture of one rib, left side, initial encounter for closed fracture; J98.11 Atelectasis; Z96.651 Presence of right artificial knee joint; T40.605A Adverse effect of unspecified narcotics, initial encounter; I25.10 Atherosclerotic heart disease of native coronary artery without angina pectoris; I95.2 Hypotension due to drugs; I10 Essential (primary) hypertension; E78.5 Hyperlipidemia, unspecified; Z96.641 Presence of right artificial hip joint; Z88.6 Allergy status to analgesic agent; Z88.8 Allergy status to other drugs, medicaments and biological substances; Z82.49 Family history of ischemic heart disease and other diseases of the circulatory system; Z83.6 Family history of other diseases of the respiratory system; Y92.89 Other specified places as the place of occurrence of the external cause; Z79.82 Long term (current) use of aspirin; Z79.899 Other long term (current) drug therapy; W18.39XA Other fall on same level, initial encounter; Y93.89 Activity, other specified

== ENCOUNTER 2019-06-10 13:43 | Inpatient (IN) | payer OTHER ==
[~2019-06-10] VITALS: Ht 182.9 cm; Wt 99.3 kg
[~2019-06-10 13:43] MED LIST changes: +COLACE100 MG PO; +ELIQUIS5 MG PO; +LIDOPATCH1 EACH TOP; +OXYCODONE HCL 55 MG PO; +PAIN RELIEVER500 MG PO; +VOLTAREN GEL 1100 G1 TOP
[2019-06-10 15:39] LABS: BE -3.5 mmol/L (-2 to +3); PCO2 32.5 mmHg (35.0-45.0); pH 7.413 (7.340-7.450)
[2019-06-10 15:46] LABS: PO2 37.7 mmHg (75.0-100.0)
[2019-06-10 15:54] LABS: ABSOLUTE BASOPHILS 0.1 thou/uL (0.0-0.2); ABSOLUTE EOSINOPHILS 0.3 thou/uL (0.0-0.7); ABSOLUTE LYMPHOCYTES 1.6 thou/uL (0.8-5.3); ABSOLUTE MONOCYTES 0.8 thou/uL (0.0-1.2); ABSOLUTE NEUTROPHILS 7.7 thou/uL (1.6-8.1); BASOPHILS 0.8 %; EOSINOPHILS 2.5 %; HEMOGLOBIN 11.5 gm/dL (14.0-18.0); LYMPHOCYTES 15.2 %; MCH 31.4 pg (26.0-34.0); MCHC 33.7 g/dL (28.0-37.0); MCV 93.1 fL (80.0-100.0); MONOCYTES 7.3 %; MPV 7.2 fl. (7.2-11.1); NUCLEATED RBCS 0 /100WBC; PLATELET COUNT* 434 thou/uL (150-400); POLYS 74.2 %; RBC 3.65 mil/uL (4.50-6.00); RDW-CV 15.2 % (10.5-14.5); WBC 10.3 thou/uL (4.0-11.0)
[2019-06-10 16:04] LABS: ALBUMIN 2.8 g/dL (3.4-5.0); CALCIUM 8.6 mg/dL (8.5-10.1); CREATININE 1.1 mg/dL (0.6-1.3); POTASSIUM 3.5 mmol/L (3.5-5.1); TOTAL BILIRUBIN 0.5 mg/dL (<0.1-1.0)
[2019-06-10 16:20] VITALS: BP 137/88
[2019-06-10 16:27] LABS: PCO2 31.6 mmHg (35.0-45.0); PO2 69.7 mmHg (75.0-100.0); pH 7.446 (7.340-7.450)
--- NOTE | 2019-06-10 16:34 | EKG ---
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1955 Requested By: Austin Clifford Order Number: [id number] Gwen MD: Bo Hebert Measurements Intervals [place] Rate: 71 P: 20 AL: 176 QRS: 5 QRSD: 95 T: 28 QT: 430 QTc: 468 Interpretive Statements Sinus rhythm Abnormal R-wave progression, early transition Compared to ECG 05/24/2019 03:47:22 Atrial fibrillation no longer present ST (T wave) deviation no longer present Electronically Signed On 06-10-2019 16:33:48 CDT by oB Hebret [email or web address] <ELECTRONICALLY SIGNED> By: Bo Hebert MD, [facility] 06/10/19 1633 1445 1445 Bo Hebert MD, [facility] /EPI
[2019-06-10 17:26] LABS: URINE BILIRUBIN NEGATIVE (Negative); URINE BLOOD NEGATIVE (Negative); URINE CLARITY CLEAR; URINE COLOR YELLOW; URINE GLUCOSE-RANDOM NEGATIVE (Negative); URINE KETONES NEGATIVE (Negative); URINE LEUKOCYTES-REFLEX NEGATIVE (Negative); URINE NITRITE-REFLEX NEGATIVE (Negative); URINE PROTEIN TRACE (Negative); URINE SPECIFIC GRAVITY 1.025 (1.005-1.030); URINE UROBILINOGEN 0.2 E.U./dl (0.2-1.0)
[2019-06-10 19:58] VITALS: BP 137/78
--- NOTE | 2019-06-10 19:59 | NUR ---
I ASSUMED CARE OF THE PATIENT A DIRECT ADMIT AT 1400. HE IS ALERT AND ORIENTED X4 AND IS UP WITH ASSIST OF 1 AND A WALKER. HE CAME FROM THE [place]. BED IS IN THE LOW LOCKED POSITION AND CALL LIGHT IS IN REACH. HOURLY ROUNDING IS COMPLETED AND PAIN IS MANAGED WITH PRN MEDS. 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 DR EPPS REMOVED HIS GALDINO TODAY AND RE-DRESSED HIS HIP. DRESSING IS C/D/I. PAIN MEDS ARE STAGGERED AT THE PHYSICIANS REQUEST TO KEEP FROM HAVING CONFUSION LIKE THE LAST HOSPITAL STAY. ADMISSION IS COMPLETED. WILL CONTINUE TO MONITOR.
[2019-06-11 03:10] LABS: ABSOLUTE BASOPHILS 0.1 thou/uL (0.0-0.2); ABSOLUTE EOSINOPHILS 0.4 thou/uL (0.0-0.7); ABSOLUTE LYMPHOCYTES 1.7 thou/uL (0.8-5.3); ABSOLUTE MONOCYTES 0.6 thou/uL (0.0-1.2); ABSOLUTE NEUTROPHILS 5.6 thou/uL (1.6-8.1); BASOPHILS 0.7 %; HEMATOCRIT 32.4 % (42.0-52.0); HEMOGLOBIN 11.2 gm/dL (14.0-18.0); LYMPHOCYTES 20.2 %; MCH 32.2 pg (26.0-34.0); MCHC 34.6 g/dL (28.0-37.0); MCV 93.1 fL (80.0-100.0); MONOCYTES 7.5 %; MPV 7.1 fl. (7.2-11.1); NUCLEATED RBCS 0 /100WBC; PLATELET COUNT* 385 thou/uL (150-400); POLYS 66.6 %; RBC 3.48 mil/uL (4.50-6.00); RDW-CV 15.1 % (10.5-14.5); WBC 8.4 thou/uL (4.0-11.0)
[2019-06-11 03:14] LABS: ALBUMIN 2.4 g/dL (3.4-5.0); CALCIUM 8.3 mg/dL (8.5-10.1); CREATININE 0.9 mg/dL (0.6-1.3); POTASSIUM 3.5 mmol/L (3.5-5.1); TOTAL BILIRUBIN 0.4 mg/dL (<0.1-1.0); TOTAL PROTEIN 7.1 g/dL (6.4-8.2)
--- NOTE | 2019-06-11 04:09 | NUR ---
ASSUMED CARE OF PT 06/10/19. PT A&OX4, ON ROOM AIR, VSS, TOE-TOUCH WEIGHT BEARING MAINTAINED, PAIN MEDS REQUESTED AND GIVEN ORDERED. ASSESSMENTS AND HOURLY ROUNDINGS COMPLETED. WILL CONTINUE TO MONITOR.
[2019-06-11 08:23] VITALS: BP 112/74
--- NOTE | 2019-06-11 11:26 | NUR ---
cm completed initial assessment to discuss d/c planning. pt a&ox4. pt states he lives at home w/spouse, dtr and m-i-l. pt has good support. pt has electric and manual w/c, 2 walkers, cane, crutches and having ramp installed. pt is not active. has hx w/snf, but doesnt recall the name of the facility. pt states he is current w/[facility] and would like to cont w/hh @ [facility]. irving lft luis w/bill, clinical director. cm to remain avail to assist as needed.
[2019-06-11 14:59] VITALS: BP 112/74
[2019-06-11 16:14] VITALS: BP 111/70
--- NOTE | 2019-06-11 18:15 | NUR ---
PT A&Ox4. VITALS STABLE. IV PATENT. ABX GIVEN. PAIN CONTROLLED. DENIED N/V. UP AD PATRICK. TOE TOUCH WEIGHT BEARING. PT LEFT FOR PRE OP AT 1600. WILL UPDATE UPON RETURN
[2019-06-11 22:10] VITALS: BP 108/77
[2019-06-12] VITALS: BP 110/78
[2019-06-12 03:00] LABS: HEMOGLOBIN 11.3 gm/dL (14.0-18.0); MCH 31.8 pg (26.0-34.0); MCHC 34.1 g/dL (28.0-37.0); MCV 93.4 fL (80.0-100.0); MPV 7.3 fl. (7.2-11.1); NUCLEATED RBCS 0 /100WBC; PLATELET COUNT* 371 thou/uL (150-400); RBC 3.54 mil/uL (4.50-6.00); RDW-CV 15.6 % (10.5-14.5); WBC 8.7 thou/uL (4.0-11.0)
[2019-06-12 03:02] LABS: HEMATOCRIT 32.6 % (42.0-52.0); HEMOGLOBIN 11.1 gm/dL (14.0-18.0)
[2019-06-12 03:22] LABS: ALBUMIN 2.7 g/dL (3.4-5.0); CALCIUM 9.2 mg/dL (8.5-10.1); CREATININE 1.1 mg/dL (0.6-1.3); TOTAL BILIRUBIN 0.3 mg/dL (<0.1-1.0); TOTAL PROTEIN 7.7 g/dL (6.4-8.2)
[2019-06-12 03:23] LABS: POTASSIUM 4.5 mmol/L (3.5-5.1)
[2019-06-12 04:00] VITALS: BP 112/78
--- NOTE | 2019-06-12 04:09 | NUR ---
PT ON FLOOR FOLLOWING SURGERY AT APPROX 2210. PT A&OX4, DROWSY, PT ON 4L O2 NC WITH CAPNO, VSS, HEMOVAC AND TWO PREVENA WOUND VACS IN PLACE, TOUCHDOWN WEIGHT BEARING MAINTAINED, CONTACT ISOLATION PRECAUTIONS MAINTAINED - PT EDUCATED. PAIN MEDS REQUESTED AND GIVEN ORDERED. ASSESSMENTS AND HOURLY ROUNDINGS COMPLETED. WILL CONTINUE TO MONITOR.
[2019-06-12 06:16] LABS: ABSOLUTE LYMPHOCYTES 0.2 thou/uL (0.8-5.3); ABSOLUTE MONOCYTES 0.1 thou/uL (0.0-1.2); ABSOLUTE NEUTROPHILS 8.4 thou/uL (1.6-8.1); ANISOCYTOSIS 1+; PLATELET ESTIMATE ADEQUATE; POIKILOCYTOSIS 1+
--- NOTE | 2019-06-12 18:31 | NUR ---
PT A&Ox4. VITALS STABLE. IV PATENT. UP AD PATRICK. TOE TOUCH WEIGHT BEARING. DRAIN AND WOUND VAC IN PLACE. TOLERATING DIET. CALL LIGHT WITHIN REACH WILL CONTINUE TO MONITOR.
[2019-06-12 22:00] VITALS: BP 110/66
[2019-06-13 04:03] LABS: ABSOLUTE EOSINOPHILS 0.2 thou/uL (0.0-0.7); ABSOLUTE LYMPHOCYTES 2.3 thou/uL (0.8-5.3); ABSOLUTE MONOCYTES 0.8 thou/uL (0.0-1.2); ABSOLUTE NEUTROPHILS 5.1 thou/uL (1.6-8.1); BASOPHILS 0.6 %; EOSINOPHILS 2.7 %; HEMATOCRIT 30.8 % (42.0-52.0); HEMOGLOBIN 10.4 gm/dL (14.0-18.0); LYMPHOCYTES 27.2 %; MCH 31.5 pg (26.0-34.0); MCHC 33.7 g/dL (28.0-37.0); MCV 93.5 fL (80.0-100.0); MONOCYTES 9.4 %; MPV 7.6 fl. (7.2-11.1); NUCLEATED RBCS 0 /100WBC; PLATELET COUNT* 407 thou/uL (150-400); POLYS 60.1 %; RDW-CV 15.7 % (10.5-14.5); WBC 8.4 thou/uL (4.0-11.0)
[2019-06-13 04:18] LABS: ALBUMIN 2.7 g/dL (3.4-5.0); CALCIUM 8.8 mg/dL (8.5-10.1); CREATININE 1.2 mg/dL (0.6-1.3); POTASSIUM 3.6 mmol/L (3.5-5.1); TOTAL BILIRUBIN 0.3 mg/dL (<0.1-1.0); TOTAL PROTEIN 7.1 g/dL (6.4-8.2)
--- NOTE | 2019-06-13 06:32 | NUR ---
PT A&O X 4. MEDS GIVEN ORDERED. PAIN MANAGED WITH SCHEDULED OXY IR. DRESSING TO RT HIP INTACT. WOUND VACS, HEMO VAC IN PLACE. TTWB, ISOLATION MAINTAINED. WILL CONTINUE TO MONITOR.
--- NOTE | 2019-06-13 07:41 | CON ---
[address] [address] CONSULTATION Name: YAHAIRAEULALIO HEARN Room: [address] IN M.R.#: [id number] Admission: 06/10/19 Attend Phys: Nallely Fonseca Discharge: Date of : 53 Report #: [id number] THIS REPORT FOR: //name// cc: Paige Galindo Linda J. DO ~ THIS REPORT FOR: //name// CC: Mervin Clifford DATE OF SERVICE: 06/12/2019 INFECTIOUS DISEASE CONSULTATION ATTENDING PHYSICIAN: Dr. Clifford. 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 HISTORY OF PRESENT ILLNESS: He was [facility] to the hospital on [facility]10[facility] and did have marked erythema around that site. There was associated drainage that sounds to be consistent with serous type fluid. He underwent operative debridement with evacuation. Cultures are pending. Placed on empiric therapy with vancomycin and had been given cefazolin as well. Cultures are pending. The fluid and blood cultures are sterile thus far. He states that his leg is essentially not painful even with fairly vigorous touching, has not had recent fevers, denies any pulmonary or gastrointestinal related complaints. He has not been anorexic. ALLERGIES: LISTED TO POTASSIUM, AMLODIPINE, AND HYDROCODONE. MEDICATIONS: Include apixaban, docusate sodium, oxycodone, morphine, fentanyl as needed, montelukast, sertraline, diclofenac, albuterol, aspirin, atorvastatin, ezetimibe, vancomycin, tramadol, meclizine, gabapentin, p.r.n. analgesics. PAST MEDICAL AND SURGICAL HISTORY: Includes hypertension, hyperlipidemia, and history of arthritis. He does have known atherosclerotic coronary artery disease with previous stenting and previous cholecystectomy, right hip replacement. SOCIAL HISTORY: Smokes half pack a day. No illicit drug use[place] [address] CONSULTATION Name: EULALIO SYED Room: [address]#: [id number] Admission: 06/10/19 Attend Phys: Nallely Fonseca Discharge: Date of : 53 Report #: [id number] FAMILY HISTORY: Noncontributory. REVIEW OF SYSTEMS: Otherwise, unremarkable. PHYSICAL EXAMINATION: GENERAL: He is pleasant, alert and cooperative. He is sitting up in a chair. He is in mild distress. He appears to be reasonably well nourished. He is lucid. VITAL SIGNS: Temperature 97.6, pulse 89, respirations 17, blood pressure 112/78. SKIN: Warm, dry, no rashes. HEENT: Normocephalic. Extraocular muscles intact. NECK: Supple. LUNGS: Generally clear to auscultation. HEART: Regular. I do not appreciate a murmur. ABDOMEN: Obese, somewhat firm, although nontender. EXTREMITIES: Right hip has a wound VAC in place. There is mild degree of induration; however, the margins involving several centimeters, it is really not tender. There is some mild degree of erythema as well. GENITOURINARY: Deferred. RECTAL: Deferred. LABORATORY DATA: Blood cultures are sterile thus far. Prealbumin is 16.5. CBC: White count of 8.7, H and H 11.3 and 33.0, platelets of 371. Electrolytes: Sodium 137, potassium 4.5, chloride 102, bicarbonate is 26, anion gap of 9, BUN and creatinine 30 and 1.1, glucose of 130. LFTs are unremarkable. Albumin of 2.7, total protein 7.7 and estimated GFR of 67. On review the operative report, apparently the fluid collection was limited to the superficial structures consistent with a postoperative seroma. There is no evidence of any necrotic tissue and ____ apparently was not breached and positive MRSA PCR surveillance. ASSESSMENT AND PLAN: Postoperative seroma. I think the way the evidence probably favors against a complicating infection, we will await the results. Continue empiric antimicrobial therapy given the possible consequences of ineffectively treated infection at this point. At this point, he is unable to continue his physical therapy. He does have an incentive spirometry, which he is encouraged to use. We may consider transitioning to oral antibiotics in this setting. We will follow. <ELECTRONICALLY SIGNED> By: Emiliano Muñoz MD 06/13/19 0741 1833 [id number] Muñoz MD /nt
[2019-06-13 08:06] VITALS: BP 109/57
[2019-06-13] MEDS ORDERED: LIDOPATCH1 EACH TOP (09:29)
[2019-06-13] MEDS ORDERED: OXYCODONE HCL 55 MG PO (09:29)
[2019-06-13] MEDS ORDERED: MINOCYCLINE HC100 M2 PO (09:29)
[2019-06-13] MEDS ORDERED: ELIQUIS5 MG PO (09:34)
[2019-06-13 11:25] VITALS: BP 109/57
--- NOTE | 2019-06-13 11:47 | NUR ---
PT.TO DISCHARGE TODAY WITH HOME HEALTH. TO RESUME WITH [facility]. CALLED [facility] AND FAXED DISCHARGE SUMMARY AND ORTHO PROGRESS NOTE WITH RECOMMENDATIONS TO HER AT [phone]. THEY WILL CALL HIM TO SET UP APPTS.
--- NOTE | 2019-06-13 12:29 | NUR ---
PT DISCHARGED TO HOME WITH AT 1225 WITH AND NURSING STAFF. IV OUT. PT STABLE. PAIN CONTROLLED. WOUND VACs AND HEMOVAC IN PLACE. PAPER SCRIPT GIVEN. PERSONAL ITEMS SENT WITH PT.
--- NOTE | 2019-06-14 00:22 | OP ---
[facility] [address] [place] [address] OPERATIVE REPORT Name: YAHAIRAEULALIO HEARN Room: [address] IN M.R.#: [id number] Admission: 06/10/19 Attend Phys: Nallely Fonseca Discharge: 06/13/19 Date of : 53 Report #: [id number] THIS REPORT FOR: //name// cc: Paige Galindo Linda J. DO ~ THIS REPORT FOR: //name// CC: Mervin Clifford PREOPERATIVE DIAGNOSES: Right hip cellulitis and underlying fluid collection, superficial on ultrasound. POSTOPERATIVE DIAGNOSES: Right hip cellulitis, normal postoperative seroma in proximal aspect of the incision. No signs of active abscess or deep infection. PROCEDURE PERFORMED: Irrigation and debridement, right hip superficial. SURGEON: Mervin Candelario DO ASSISTANTS: 1. Yovani Merrill DO 2. Júnior Hazel DO ANESTHESIA: General. ANTIBIOTICS: Scheduled vancomycin IV, confirmed on timeout. ESTIMATED BLOOD LOSS: 200 mL. FLUIDS: 1100 mL lactated Ringer's. SPECIMENS: Superficial culture of seromatous fluid just deep to incision. COMPLICATIONS: None. DRAINS: One medium Hemovac. CONDITION OF PATIENT: Stable to PACU. INDICATIONS FOR PROCEDURE: The patient admitted from my office to [facility] for IV antibiotics for a superficial cellulitis. I had obtained an ultrasound to check for any fluid collection. There was an unknown area just deep to the superficial incision with nothing deep to that, unable to tell if that collection was developing abscess or if it was an underlying seroma or hematoma. I spoke with the patient and in detail that with this incision [address] [address] OPERATIVE REPORT Name: EULALIO SYED Room: [address] IN M.R.#: [id number] Admission: 06/10/19 Attend Phys: Nallely Fonseca Discharge: 06/13/19 Date of : 53 Report #: [id number] in postoperative state, a seroma would almost be potentially expected, but due to the fact that he has some superficial cellulitis, I do believe an I and D would be warranted to stay aggressive with the treatment plan. They were in agreement and happy with that plan and care. They acknowledged and accepted risks and complications of surgery and gave consent to proceed. DESCRIPTION OF PROCEDURE: I marked the right lower extremity in the presence of the operative team members. Everyone agreed this was correct. He was taken back to the operative suite where a briefing was performed indicating correct patient, procedure, site, antibiotics that were scheduled IV vancomycin and all team members agreed. General anesthetic was administered. He was transferred over to the operative table into the left lateral decubitus position, well-padded and secured. The right lower extremity was sterilely prepped and draped in standard fashion technique. Timeout was performed indicating correct patient, procedure, site, antibiotics and that implants were present and sterile. All team members agreed. With the amount of day 1 of sleep, I was able to get more of an exam, there does not appear to be any area of fluctuance. We used the scalpel to come through this incision at the proximal aspect just where the ultrasound showed there was an area that looked exactly as the expected postoperative seroma. No signs of obvious infection or abscess anywhere throughout the tissue. There was just some superficial fat necrosis and that was most likely what was coming through the areas of fazal. There was no evidence of any necrotic tissue whatsoever. Good bleeding tissue with no evidence of deep penetration through the IT band and fascial layer and this was a well-closed and adhered layer nor any fluctuance was palpated deep to this nor could the expression of fluid be found. We irrigated with 6 liters of normal saline. We examined the area, good bleeding healthy tissue. No evidence of necrotic areas or space. No tracking deep. We changed gloves. It should be noted that a culture was obtained of that seromatous fluid and sent and confirmed as a specimen timeout to lab. We changed gloves and discarded any instruments used for the initial aspect. A medium Hemovac was drawn, we placed that into that area of space where the seroma was proximally setting it to drain out anteriorly. We reapproximated the deep layer with #1 PDS. Subcutaneous was closed with 2-0 Monocryl buried deep and skin was closed with 2-0 nylon simple interrupted. Debriefing performed where we confirmed procedure, blood loss and that all counts were correct and final and the specimens were sent to lab and labeled appropriately. All team members agreed. Sterile incisional Prevena VAC dressings were applied, sealed and functioning appropriately. He was transferred off the operative table, extubated successfully and taken to PACU stable. POSTOPERATIVE COURSE AND EVALUATION: I spoke with his , per her wishes, addressed any questions she had to stated satisfaction. We spoke for over 35 minutes. She was very thankful for my time and efforts. He was resting in PACU with stable vital signs, pain controlled, neurovascularly intact. Incisional VAC functioning appropriately. Negative Homans sign[place] [address] OPERATIVE REPORT Name: EULALIO SYED Room: [address]#: [id number] Admission: 06/10/19 Attend Phys: Nallely Fonseca Discharge: 06/13/19 Date of : 53 Report #: [id number] both pharmacological and mechanical as instructed. We will plan on consulting Dr. Muñoz of Infectious Disease. I will call him personally to discuss this case, as I do believe antibiotics upon discharge are warranted. We will ask for his help and expertise. I encouraged nursing, medical staff, patient and family to call anytime. The patient and his have access to my cell phone number. I reviewed orders and postoperative plan with the resident physician and initiated orders personally. <ELECTRONICALLY SIGNED> By: Mervin Candelario DO 06/14/19 0022 2233 0005Mervin Candelario DO /nt
== END 2019-06-13 12:30 | disposition home health service (06) | DRG 856 ==
LOC: M.ORTHSURG 13:43
PROVIDERS: Orthopaedic Surgery; ADMIT Internal Medicine
PROC: 0J9L0ZZ Drainage of Right Upper Leg Subcutaneous Tissue and Fascia, Open Approach (ICD-10-PCS; principal; 2019-06-11)
DX: T81.41XA Infection following a procedure, superficial incisional surgical site, initial encounter (principal); E43 Unspecified severe protein-calorie malnutrition; L03.115 Cellulitis of right lower limb; I25.10 Atherosclerotic heart disease of native coronary artery without angina pectoris; F17.210 Nicotine dependence, cigarettes, uncomplicated; I10 Essential (primary) hypertension; Z96.641 Presence of right artificial hip joint; E78.5 Hyperlipidemia, unspecified; Y83.8 Other surgical procedures as the cause of abnormal reaction of the patient, or of later complication, without mention of misadventure at the time of the procedure; M19.90 Unspecified osteoarthritis, unspecified site; Z79.01 Long term (current) use of anticoagulants; Z79.82 Long term (current) use of aspirin; Z79.899 Other long term (current) drug therapy; Z88.5 Allergy status to narcotic agent; Z88.8 Allergy status to other drugs, medicaments and biological substances; Z95.5 Presence of coronary angioplasty implant and graft; Z90.49 Acquired absence of other specified parts of digestive tract; Z72.89 Other problems related to lifestyle; Z68.29 Body mass index [BMI] 29.0-29.9, adult; Z82.49 Family history of ischemic heart disease and other diseases of the circulatory system; Y92.89 Other specified places as the place of occurrence of the external cause

== ENCOUNTER 2019-12-16 20:42 | Emergency (ER) | payer OTHER ==
[~2019-12-16] VITALS: Ht 182.9 cm; Wt 99.8 kg
[~2019-12-16 20:42] MED LIST changes: +MINOCYCLINE HC100 M2 PO
[2019-12-16 21:33] LABS: HEMATOCRIT 47.5 % (42.0-52.0); HEMOGLOBIN 16.7 gm/dL (14.0-18.0); MCH 32.9 pg (26.0-34.0); MCHC 35.2 g/dL (28.0-37.0); MCV 93.4 fL (80.0-100.0); MPV 7.7 fl. (7.2-11.1); NUCLEATED RBCS 0 /100WBC; PLATELET COUNT* 231 thou/uL (150-400); RBC 5.09 mil/uL (4.50-6.00); RDW-CV 18.3 % (10.5-14.5); WBC 13.7 thou/uL (4.0-11.0)
[2019-12-16 21:41] LABS: CALCIUM 8.4 mg/dL (8.5-10.1); CREATININE 2.4 mg/dL (0.6-1.3); POTASSIUM 3.4 mmol/L (3.5-5.1)
[2019-12-16 21:46] LABS: ALBUMIN 3.2 g/dL (3.4-5.0); MAGNESIUM 1.7 mg/dL (1.8-2.4); TOTAL BILIRUBIN 0.9 mg/dL (<0.1-1.0); TOTAL PROTEIN 7.8 g/dL (6.4-8.2)
[2019-12-16 22:11] LABS: ABSOLUTE EOSINOPHILS 0.1 thou/uL (0.0-0.7); ABSOLUTE LYMPHOCYTES 1.1 thou/uL (0.8-5.3); ABSOLUTE MONOCYTES 1.1 thou/uL (0.0-1.2); ABSOLUTE NEUTROPHILS 11.4 thou/uL (1.6-8.1); METAMYELOCYTES 1 %
[2019-12-16 22:14] LABS: ANISOCYTOSIS 1+; PLATELET ESTIMATE ADEQUATE
[2019-12-16 23:16] VITALS: BP 117/101
--- NOTE | 2019-12-17 13:24 | EKG ---
[place] [address] ELECTROCARDIOGRAM REPORT Name: EULALIO SYED DHIRAJ Room: 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[place] : 1955 Requested By: Rocio Berrios Order Number: [id number] Gwen MD: Bo Hebert Measurements Intervals [place] Rate: 152 P: [place]: QRS: 45 QRSD: 85 T: QT: 303 QTc: 482 Interpretive Statements Atrial fibrillation RSR' in V1 or V2, right VCD Repolarization abnormality, prob rate related Compared to ECG 06/10/2019 14:45:48 RSR' in V1 or V2 now present Sinus rhythm no longer present Electronically Signed On 12-17-2019 13:24:09 CDT by Bo Hebert [email or web address] <ELECTRONICALLY SIGNED> By: Bo Hebert MD, [facility] 12/17/19 1324 45 45 Bo Hebert MD, [facility] /EPI
== END 2019-12-16 23:16 | disposition short-term general hospital (02) ==
LOC: M.ERS 20:42
PROVIDERS: Personal Emergency Response Attendant
DX: S22.079A Unspecified fracture of T9-T10 vertebra, initial encounter for closed fracture (principal); S22.41XA Multiple fractures of ribs, right side, initial encounter for closed fracture; S09.90XA Unspecified injury of head, initial encounter; I48.91 Unspecified atrial fibrillation; M19.90 Unspecified osteoarthritis, unspecified site; I10 Essential (primary) hypertension; E78.5 Hyperlipidemia, unspecified; R10.11 Right upper quadrant pain; F17.210 Nicotine dependence, cigarettes, uncomplicated; Z88.5 Allergy status to narcotic agent; Z88.8 Allergy status to other drugs, medicaments and biological substances; Z79.899 Other long term (current) drug therapy; Z79.82 Long term (current) use of aspirin; Z96.641 Presence of right artificial hip joint; Z98.890 Other specified postprocedural states; W10.8XXA Fall (on) (from) other stairs and steps, initial encounter; Y93.89 Activity, other specified; Y92.89 Other specified places as the place of occurrence of the external cause; Y99.9 Unspecified external cause status